=== PATIENT | male | born 1995 | race Caucasian/White ===

== ENCOUNTER 2016-03-29 17:34 | Emergency (ER) | payer BC ==
[~2016-03-29] VITALS: Ht 175.3 cm; Wt 75.7 kg
[~2016-03-29 17:34] MED LIST: CEPH500C PO; DEXM20CA PO; DEXM5TAB PO; HYDR-3419 PO
[2016-03-29 17:53] VITALS: Ht 175.3 cm; Wt 75.7 kg
[2016-03-29] MEDS ORDERED: SODIUM CHLORIDE 0.9% 1000ML 1,000 ML IV STA ×2 (19:09→20:06)
--- NOTE | 2016-03-29 19:13 | EMERGENCY ROOM VISIT NOTE ---
History Report prepared by Chi: Channing Mata Under the Supervision of: Dr. Fawad Ruiz M.D. First contact with patient: 19:03 Chief Complaint: HEADACHE Stated Complaint: SEIZURE History of Present Illness The patient is a 20 year old male who presents to the Emergency Room with complaints of a seizure that occurred 2 days ago. It is now resolved. The patient woke up in the morning when the seizure occurred. He was aware that he was having one. He could not speak and was shaking. This only lasted around 10 seconds. This has never happened to the patient before. He currently has a headache. He does not have any past medical history. He does not take any medications. He denies any urinary symptoms. Source of History: patient Onset: 2 days ago Position: other (global) Symptom Intensity: mild Quality: other (seizure) Timing: resolved Associated Symptoms: + headache, No urinary symptoms Review of Systems See HPI for pertinent positives & negatives. A total of 10 systems reviewed and were otherwise negative. Past Medical & Surgical Medical Problems: (1) UTI (urinary tract infection) Family History Diabetes mellitus FHx: heart disease Hypertension Social History Smoking Status: Never Smoker Smokeless Tobacco Use: No Alcohol Use: occasionally Marital Status: single Housing Status: lives with roommate Occupation Status: student Current/Historical Medications Scheduled PRN Dexmethylphenidate Hcl (Focalin), 5 MG PO DAILY PRN for FOCUS Dexmethylphenidate Hcl (Focalin Xr), 20 MG PO DAILY PRN for FOCUS Hyoscyamine Sulfate (Levsin), 5 MG PO DAILY PRN for IBS Allergies Coded Allergies: No Known Allergies (Unverified , 12/22/15) Physical Exam Vital Signs Date Time Temp Pulse Resp B/P Pulse Ox O2 Delivery O2 Flow Rate FiO2 03/29/16 21:18 36.9 60 18 122/61 100 03/29/16 21:17 60 18 122/61 100 Room Air 03/29/16 19:58 61 18 121/66 100 Room Air 03/29/16 19:55 100 Room Air 03/29/16 19:55 100 Room Air 03/29/16 17:53 36.9 58 18 122/65 100 Room Air Physical Exam GENERAL: Patient is a healthy-appearing well-nourished HEAD: Normocephalic atraumatic EYES: Ocular movements intact pupils equal and react to light OROPHARYNX mucous membranes are moist no exudates present no erythema or edema present NECK: Supple no nuchal rigidity CHEST: Good equal expansion LUNGS: Clear and equal to auscultation CARDIAC: Normal S1 and S2 ABDOMEN: Soft nontender no guarding BACK: No CVA tenderness EXTREMITIES: No pain upon palpation normal muscle strength in all groups no clubbing cyanosis or edema NEURO: Patient is following commands is answering questions appropriately. Alert and oriented x3 Cranial Nerves 2-12 grossly intact Medical Decision & Procedures ER Provider Diagnostic Interpretation: Radiology results are stated below per my review and radiologist interpretation: HEAD CT NONCONTRAST CT DOSE: 729.78 mGycm HISTORY: Mental status change Pt c/o seizure TECHNIQUE: Multiaxial CT images of the head were performed without the use of intravenous contrast. Comparison: None. Findings: The paranasal sinuses and mastoid air cells are clear. The calvarium and skull base are intact. The ventricles and sulci are within normal limits. There is no mass, hematoma, midline shift, or acute infarct. Impression: No acute intracranial abnormality. Electronically signed by: Dean Roblero M.D. 03/29/2016 8:09 PM Dictated Date/Time: 03/29/2016 8:09 PM Laboratory Results 03/29/16 19:32 Red Blood Count 5.46, Mean Corpuscular Volume 82.6, Mean Corpuscular Hemoglobin 29.1, Mean Corpuscular Hemoglobin Concent 35.3, Mean Platelet Volume 10.1, Neutrophils (%) (Auto) 54.0, Lymphocytes (%) (Auto) 32.2, Monocytes (%) (Auto) 6.6, Eosinophils (%) (Auto) 6.6, Basophils (%) (Auto) 0.5, Neutrophils # (Auto) 4.50, Lymphocytes # (Auto) 2.68, Monocytes # (Auto) 0.55, Eosinophils # (Auto) 0.55, Basophils # (Auto) 0.04 03/29/16 19:32 Test 03/29/16 19:32 03/29/16 19:50 White Blood Count 8.33 K/uL (4.8-10.8) Red Blood Count 5.46 M/uL (4.7-6.1) Hemoglobin 15.9 g/dL (14.0-18.0) Hematocrit 45.1 % (42-52) Mean Corpuscular Volume 82.6 fL (80-100) Mean Corpuscular Hemoglobin 29.1 pg (25-34) Mean Corpuscular Hemoglobin Concent 35.3 g/dl (32-36) Platelet Count 200 K/uL (130-400) Mean Platelet Volume 10.1 fL (7.4-10.4) Neutrophils (%) (Auto) 54.0 % Lymphocytes (%) (Auto) 32.2 % Monocytes (%) (Auto) 6.6 % Eosinophils (%) (Auto) 6.6 % Basophils (%) (Auto) 0.5 % Neutrophils # (Auto) 4.50 K/uL (1.4-6.5) Lymphocytes # (Auto) 2.68 K/uL (1.2-3.4) Monocytes # (Auto) 0.55 K/uL (0.11-0.59) Eosinophils # (Auto) 0.55 K/uL (0-0.5) Basophils # (Auto) 0.04 K/uL (0-0.2) RDW Standard Deviation 39.7 fL (36.4-46.3) RDW Coefficient of Variation 13.2 % (11.5-14.5) Immature Granulocyte % (Auto) 0.1 % Immature Granulocyte # (Auto) 0.01 K/uL (0.00-0.02) Prothrombin Time 12.3 SECONDS (9.0-12.0) Prothromb Time International Ratio 1.1 (0.9-1.1) Activated Partial Thromboplast Time 29.9 SECONDS (21.0-31.0) Partial Thromboplastin Ratio 1.2 Anion Gap 10.0 mmol/L (3-11) Est Creatinine Clear Calc Drug Dose 73.7 ml/min Estimated GFR () 70.8 Estimated GFR (Non- 61.1 BUN/Creatinine Ratio 12.2 (10-20) Calcium Level 8.6 mg/dl (8.5-10.1) Phosphorus Level 3.6 mg/dl (2.5-4.9) Magnesium Level 2.1 mg/dl (1.8-2.4) Total Creatine Kinase 235 U/L (39-308) Thyroid Stimulating Hormone (TSH) 1.180 uIu/ml (0.300-4.500) Urine Color YELLOW Urine Appearance CLEAR (CLEAR) Urine pH 7.0 (4.5-7.5) Urine Specific [place] 1.024 (1.000-1.030) Urine Protein NEG (NEG) Urine Glucose (UA) NEG (NEG) Urine Ketones NEG (NEG) Urine Occult Blood NEG (NEG) Urine Nitrite NEG (NEG) Urine Bilirubin NEG (NEG) Urine Urobilinogen NEG (NEG) Urine Leukocyte Esterase NEG (NEG) Urine Opiates Screen NEG (NEG) Urine Methadone, Qualitative NEG (NEG) Urine Barbiturates NEG (NEG) Urine Phencyclidine (PCP) Level NEG (NEG) Ur Amphetamine/Methamphetamine NEG (NEG) MDMA (Ecstasy) Screen NEG (NEG) Urine Benzodiazepines Screen NEG (NEG) Urine Cocaine Metabolite NEG (NEG) Urine Marijuana (THC) NEG (NEG) Labs reviewed by ED physician. Medications Administered Medications (Trade) Dose Ordered Sig/Ghazal Route Start Time Stop Time Status Last Admin Dose Admin Sodium Chloride 1,000 ml @ 999 mls/hr Q1H1M STAT IV 03/29/16 19:09 03/29/16 20:09 DC 03/29/16 19:59 999 MLS/HR Sodium Chloride (Nss 1000ml) 1,000 ml @ 999 mls/hr Q1H1M STAT IV 03/29/16 20:06 03/29/16 21:06 DC 03/29/16 20:30 999 MLS/HR ED Course 1902: Past medical records reviewed. The patient was evaluated in room A11. A complete history and physical examination was performed. 1908: Sodium Chloride 1000 ml @ 999 mls/hr IV 2005: Sodium Chloride 1000 ml @ 999 mls/hr IV 2034: Upon reexamination the patient is resting. I discussed results and treatment plan with the patient. He verbalizes agreement and understanding. The patient is ready for discharge. Medical Decision Differential diagnosis: Etiologies such as infection, hypoglycemia, electrolyte abnormalities, cardiac sources, intracerebral event, trauma, toxicologic, neurologic, as well as others were entertained. This is a 20-year-old male who presents emergency department complaining of seizure-like activity sleeping. The patient does admit to taking supplements as well as marijuana use. I strongly cautioned him to stop everything as well as alcohol use. CT the head is normal. The patient does appear to be dehydrated with a bump in his creatinine. For this reason the patient was given 2 L of fluid here in the emergency department. I stressed the need for follow-up with neurology. Patient was in agreement with the treatment plan. Impression Primary Impression: Seizure-like activity Additional Impression: Dehydration Scribe Attestation The scribe's documentation has been prepared under my direction and personally reviewed by me in its entirety. I confirm that the note above accurately reflects all work, treatment, procedures, and medical decision making performed by me. Departure Information Dispostion Home / Self-Care Referrals Lianna Lake.Simone Forms HOME CARE DOCUMENTATION FORM, IMPORTANT VISIT INFORMATION, School Instructions, Work Instructions Patient Instructions Dehydration, ED Seizure New Onset Unk Cause, My [facility] Additional Instructions Refrain from all drugs and alcohol as well as supplements until follow up with Neurology Increase fluid intake next 48 hours Follow up with Dr Lake's office You have been examined and treated today on an emergency basis only. This is not a substitute for, or an effort to provide, complete comprehensive medical care. It is impossible to recognize and treat all injuries or illnesses in a single emergency department visit. It is therefore important that you follow up closely with S. Call as soon as possible for an appointment. Thank you for your time and consideration. I look forward to speaking with you again soon. Please don't hesitate to call us if you have any questions. Problem Qualifiers
[2016-03-29 19:38] LABS: BASO % 0.5 %; BASO ABS # 0.04 K/uL (0-0.2); COMPLETE YES; EOS % 6.6 %; HEMATOCRIT 45.1 % (42-52); IG% 0.1 %; LYMPH % 32.2 %; LYMPH ABS # 2.68 K/uL (1.2-3.4); MEAN CELL VOLUME 82.6 fL (80-100); MEAN CORPUSCULAR HEMOGLOBIN 29.1 pg (25-34); MEAN CORPUSCULAR HGB CONC 35.3 g/dl (32-36); MEAN PLATELET VOLUME 10.1 fL (7.4-10.4); MONO % 6.6 %; PLATELET COUNT 200 K/uL (130-400); RED BLOOD COUNT 5.46 M/uL (4.7-6.1); WHITE BLOOD COUNT 8.33 K/uL (4.8-10.8)
[2016-03-29 19:47] LABS: INR 1.1 (0.9-1.1); PARTIAL THROMBOPLASTIN RATIO 1.2; PROTHROMBIN TIME (PATIENT) 12.3 SECONDS (9.0-12.0)
[2016-03-29 19:55] VITALS: O2SAT 100
[2016-03-29 20:00] LABS: BUN/CREATININE RATIO 12.2 (10-20); CALCIUM 8.6 mg/dl (8.5-10.1); CREATININE 1.6 mg/dl (0.60-1.40); MAGNESIUM 2.1 mg/dl (1.8-2.4); POTASSIUM 3.7 mmol/L (3.5-5.1)
[2016-03-29 20:11] LABS: PHOSPHORUS 3.6 mg/dl (2.5-4.9); THYROID STIMULATING HORMONE 1.18 uIu/ml (0.300-4.500)
[2016-03-29] MEDS ORDERED: HYOS1TAB PO (20:11)
--- NOTE | 2016-03-29 20:11 | DIAGNOSTIC IMAGING REPORT ---
HEAD CT NONCONTRAST CT DOSE: 729.78 mGycm HISTORY: Mental status change Pt c/o seizure TECHNIQUE: Multiaxial CT images of the head were performed without the use of intravenous contrast. Comparison: None. Findings: The paranasal sinuses and mastoid air cells are clear. The calvarium and skull base are intact. The ventricles and sulci are within normal limits. There is no mass, hematoma, midline shift, or acute infarct. Impression: No acute intracranial abnormality. Electronically signed by: Dean Roblero M.D. 03/29/2016 8:09 PM Dictated Date/Time: 03/29/2016 8:09 PM
[2016-03-29 20:12] LABS: URINE APPEARANCE CLEAR (CLEAR); URINE BILIRUBIN NEG (NEG); URINE COLOR YELLOW; URINE NITRITE NEG (NEG); URINE SPECIFIC GRAVITY 1.024 (1.000-1.030); UROBILINOGEN NEG (NEG)
[2016-03-29 20:13] LABS: MANUAL MICROSCOPIC REQUIRED? NO; REVIEW REQ? NO
[2016-03-29] MEDS ORDERED: DEXM5TAB PO (20:14)
[2016-03-29] MEDS ORDERED: DEXM20CA PO (20:16)
[2016-03-29 20:38] LABS: BENZODIAZEPINE, URINE NEG (NEG); COCAINE,URINE NEG (NEG); PHENCYCLIDINE, URINE NEG (NEG)
[2016-03-29 21:18] VITALS: BP 122/61; PULSE 60; TEMP 36.9; O2SAT 100
== END 2016-03-29 21:19 | disposition home or self-care (01) ==
LOC: C.EDB 17:36 → C.EDA 21:19
DX: R56.9 Unspecified convulsions (principal); E86.0 Dehydration; R41.82 Altered mental status, unspecified; R51 Headache